=== PATIENT | female | born 2000 | race Caucasian/White ===

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

== ENCOUNTER 2018-10-16 23:08 | Emergency (ER) | payer OTHER, MEDICAID ==
[~2018-10-16] VITALS: Ht 167.6 cm; Wt 70.3 kg
[2018-10-17] MEDS ORDERED: AUGMENTIN 875 MG TAB (AMOXICILLIN/CLAVULANATE) PO STA (00:27)
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
[2018-10-17] MEDS ORDERED: AMOX-358 PO (00:56)
[2018-10-17 01:01] VITALS: BP 140/90
== END 2018-10-17 01:00 | disposition home or self-care (01) ==
LOC: EDUNIT# 23:08 → ER 23:11
DX: S71.152A Open bite, left thigh, initial encounter (principal); J45.909 Unspecified asthma, uncomplicated; R40.2142 Coma scale, eyes open, spontaneous, at arrival to emergency department; R40.2252 Coma scale, best verbal response, oriented, at arrival to emergency department; R40.2362 Coma scale, best motor response, obeys commands, at arrival to emergency department; Z87.440 Personal history of urinary (tract) infections; Z88.2 Allergy status to sulfonamides; Z88.1 Allergy status to other antibiotic agents; Y04.1XXA Assault by human bite, initial encounter
CPT/HCPCS: 99283

== ENCOUNTER 2020-07-22 07:57 | Emergency (ER) | payer BC, OTHER ==
[~2020-07-22] VITALS: Ht 165.1 cm; Wt 68.0 kg
[~2020-07-22 07:57] MED LIST changes: +AMOX-358 PO; -CLIN300C11 PO; +CLIN300C12 PO
[2020-07-22] MEDS ORDERED: ONDANSETRON 4 MG (ZOFRAN) ORAL DISSOLVE TAB PO ONE (08:15)
[2020-07-22] MEDS ORDERED: predniSONE 20 MG TAB PO ONE (08:15)
[2020-07-22] MEDS ORDERED: diphenhydrAMINE 25 MG TAB (BENADRYL) PO ONE (08:15)
[2020-07-22] MEDS ORDERED: FAMOTIDINE 20 MG (PEPCID) TABLET PO ONE (08:15)
--- NOTE | 2020-07-22 08:22 | ED General ---
General Stated Complaint: L ARM SPIDER BITE, BI LAT LEG POSSIBLE CELLULITIS Source of Information: Patient, Family Exam Limitations: No Limitations History of Present Illness Date Seen by Provider: July 22, 2020 Time Seen by Provider: 08:03 Initial Comments Patient is a 20-year-old female who presents to the emergency department today with a chief complaint of left upper extremity "bite" and bilateral inner thigh redness and swelling. Patient states that she noticed that she had some sort of an insect bite or spider bite to her left wrist on Wednesday, 3 days ago. Patient states that she went to [facility] and was started on some doxycycline. At the time she noticed the bites she had some mild redness to the upper medial thighs bilaterally. She states she was also given a shot of steroids. She states her symptoms worsen she went back to urgent care and then had some "steroid injections around the bite site". And then potentially another shot of antibiotics. She is on doxycycline twice daily now for 10 days. The redness to her upper inner thighs is worse. She also has diffuse macular rash to her back. She has mild erythema and swelling that extends up her left arm into the axilla. There is no induration or fluctuance around the bite site. There is a small pustule at the bite site with adjacent ecchymosis. She states she has felt malaise, nausea, has had decreased appetite and overall oral intake. She also complains of dysuria, urgency and frequency and states that she has "chronic UTIs". She is declining giving a urine sample at this time secondary to the pain that it causes when she urinates. All other review of systems reviewed and negative except as stated above. Timing/Duration: 3-4 Days Severity: Moderate Modifying Factors: worse with Movement; improves with Rest Associated Systoms: Loss of Appetite, Malaise, Nausea/Vomiting Allergies and Home Medications Allergies Coded Allergies: sulfamethoxazole (Verified Allergy, Unknown, 04/14/16) trimethoprim (Verified Allergy, Unknown, 04/14/16) Uncoded Allergies: [id number] (HAYFEVER) (Allergy, Mild, 10/04/08) Home Medications Amoxicillin/Potassium Clav 1 Each Tablet, 1 EACH PO BID Prescribed by: REBECCA VGIIL on 10/17/18 0056 Clindamycin HCl 300 Mg Capsule, 1 CAP PO UD, (Reported) Doxycycline Hyclate 100 Mg Tablet, 100 MG PO BID Prescribed by: SUSAN ARREGUIN on 04/13/162201 Prednisone 10 Mg Tab.ds.pk, 10 MG PO DAILY Take 6 tabs(60mg)daily,decrease by 1 tab(10mg)every other day. Prescribed by: TITI PAUL on 07/22/20 0829 Patient Home Medication List Home Medication List Reviewed: Yes Review of Systems Review of Systems Constitutional: see HPI, malaise EENTM: no symptoms reported Respiratory: no symptoms reported Cardiovascular: no symptoms reported Gastrointestinal: nausea Genitourinary: dysuria, frequency Musculoskeletal: muscle pain Skin: pruritus, rash Psychiatric/Neurological: No Symptoms Reported All Other Systems Reviewed Negative Unless Noted: Yes Past Dpszfqm-Aooifl-Gegqco Hx Patient Social History 2nd Hand Smoke Exposure: No Recent Hopitalizations: No Immunizations Up To Date Tetanus Booster (TDap): Less than 5yrs Date of Influenza Vaccine: Nov 22, 2013 Seasonal Allergies Seasonal Allergies: Yes Past Medical History Surgeries: No Respiratory: Yes Asthma Cardiac: No Neurological: No Reproductive Disorders: No UTI-Chronic Gastrointestinal: No Musculoskeletal: No Endocrine: No Cancer: No Psychosocial: No Integumentary: No Blood Disorders: No Physical Exam Vital Signs Vital Signs - First Documented 07/22/20 08:01 Temp 36.1 Pulse 88 Resp 18 B/P (MAP) 138/101 (113) Pulse Ox 99 O2 Delivery Room Air Capillary Refill : Height, Weight, BMI Height: 5'6" Weight: 155lbs. oz. 70.053091ha; 25.01 BMI Method:Estimated General Appearance: No Apparent Distress, WD/WN Eyes: Bilateral Eye Normal Inspection, Bilateral Eye PERRL, Bilateral Eye EOMI Neck: Normal Inspection Respiratory: Lungs Clear, Normal Breath Sounds, No Accessory Muscle Use, No Respiratory Distress Cardiovascular: Regular Rate, Rhythm Extremity: No Calf Tenderness, Swelling (Left forearm and upper arm) Neurologic/Psychiatric: Alert, Oriented x3, No Motor/Sensory Deficits, Normal Mood/Affect Skin: Normal Color, Warm/Dry, Other (Patient has bright red bilateral inner thigh macular rash as well as a nonpalpable macular rash to her back. She has some mild erythema to the left forearm with a "bite" that is pustular on the volar surface of the left forearm, this pustule is pinpoint. There is adjacent ecchymosis. The bite site is not fluctuant or indurated. The erythema extends up the medial forearm and into the axilla.) Progress/Results/Core Measures Suspected Sepsis SIRS Temperature: Pulse: Respiratory Rate: Laboratory Tests 07/22/20 08:27: White Blood Count 5.9 Blood Pressure / Mean: Laboratory Tests 07/22/20 08:27: Creatinine 0.62, Platelet Count 208 Results/Orders Lab Results Laboratory Tests Test 07/22/20 08:27 Range/Units White Blood Count 5.9 4.3-11.0 10^3/uL Red Blood Count 4.63 3.80-5.11 10^6/uL Hemoglobin 13.9 11.5-16.0 g/dL Hematocrit 42 35-52 % Mean Corpuscular Volume 90 80-99 fL Mean Corpuscular Hemoglobin 30 25-34 pg Mean Corpuscular Hemoglobin Concent 33 32-36 g/dL Red Cell Distribution Width 12.0 10.0-14.5 % Platelet Count 208 130-400 10^3/uL Mean Platelet Volume 11.6 9.0-12.2 fL Immature Granulocyte % (Auto) 0 % Neutrophils (%) (Auto) 58 42-75 % Lymphocytes (%) (Auto) 22 12-44 % Monocytes (%) (Auto) 15 H 0-12 % Eosinophils (%) (Auto) 4 0-10 % Basophils (%) (Auto) 0 0-10 % Neutrophils # (Auto) 3.4 1.8-7.8 10^3/uL Lymphocytes # (Auto) 1.3 1.0-4.0 10^3/uL Monocytes # (Auto) 0.9 0.0-1.0 10^3/uL Eosinophils # (Auto) 0.3 0.0-0.3 10^3/uL Basophils # (Auto) 0.0 0.0-0.1 10^3/uL Immature Granulocyte # (Auto) 0.0 0.0-0.1 10^3/uL Sodium Level 139 135-145 MMOL/L Potassium Level 3.4 L 3.6-5.0 MMOL/L Chloride Level 105 98-107 MMOL/L Carbon Dioxide Level 21 21-32 MMOL/L Anion Gap 13 5-14 MMOL/L Blood Urea Nitrogen 7 7-18 MG/DL Creatinine 0.62 0.60-1.30 MG/DL Estimat Glomerular Filtration Rate > 60 BUN/Creatinine Ratio 11 Glucose Level 94 70-105 MG/DL Calcium Level 9.2 8.5-10.1 MG/DL C-Reactive Protein High Sensitivity 0.48 0.00-0.50 MG/DL My Orders Orders - TITI PAUL MD Cbc With Automated Diff (07/22/20 08:14) Basic Metabolic Panel (07/22/20 08:14) Hs C Reactive Protein (07/22/20 08:14) Ondansetron Oral Dissolve Tab (Zofran (07/22/20 08:15) Prednisone Tablet (Deltasone Tablet) (07/22/20 08:15) Diphenhydramine Tablet (Benadryl Tablet) (07/22/20 08:15) Famotidine Tablet (Pepcid Tablet) (07/22/20 08:15) Medications Given in ED Current Medications Medications Dose Ordered Sig/Maureen Route Start Time Stop Time Status Last Admin Dose Admin Diphenhydramine HCl 50 mg ONCE ONCE PO 07/22/20 08:15 07/22/20 08:16 DC 07/22/20 08:23 50 MG Famotidine 20 mg ONCE ONCE PO 07/22/20 08:15 07/22/20 08:16 DC 07/22/20 08:22 20 MG Ondansetron HCl 4 mg ONCE ONCE PO 07/22/20 08:15 07/22/20 08:16 DC 07/22/20 08:23 4 MG Prednisone 50 mg ONCE ONCE PO 07/22/20 08:15 07/22/20 08:16 DC 07/22/20 08:22 50 MG Vital Signs/I&O 07/22/20 08:01 Temp 36.1 Pulse 88 Resp 18 B/P (MAP) 138/101 (113) Pulse Ox 99 O2 Delivery Room Air Capillary Refill : Departure Impression Primary Impression: Medication adverse effect Qualified Codes: T50.905A - Adverse effect of unspecified drugs, medicaments and biological substances, initial encounter Additional Impression: Insect bite Qualified Codes: S50.862A - Insect bite (nonvenomous) of left forearm, initial encounter; W57.XXXA - Bitten or stung by nonvenomous insect and other nonvenomous arthropods, initial encounter Disposition: HOME, SELF-CARE Condition: Stable Departure-Patient Inst. Decision time for Depature: 09:13 Referrals: NO,LOCAL PHYSICIAN (PCP) Primary Care Physician CHEYENNE HERRERA DO (Family) Primary Care Physician Patient Instructions: Insect Bites and Stings Add. Discharge Instructions: Take the antibiotics as prescribed 3 times a day for the next week. Take the prednisone as instructed, taper over multiple days from 60 mg down to 10. Follow-up with [facility] or return to the emergency room for any new, concerning or worsening symptoms. Use cool packs to the left wrist at the area of the bite. Scripts Prednisone (Prednisone) 10 Mg Tab.ds.pk 10 MG PO DAILY, #42 EA Take 6 tabs(60mg)daily,decrease by 1 tab(10mg)every other day. Prov: TITI PAUL MD 07/22/20 Cephalexin (Cephalexin) 500 Mg Tablet 500 MG PO TID, #21 TAB Prov: TITI PAUL MD 07/22/20 Ondansetron (Ondansetron Odt) 4 Mg Tab.rapdis 4 MG PO Q8H for nausea, #10 TAB Prov: TITI PAUL MD 07/22/20 TITI PAUL MD July 22, 2020 08:22
[2020-07-22] MEDS ORDERED: PRED10TA22 PO ×2 (08:29→09:17)
[2020-07-22 08:33] LABS: BASOPHILS % (AUTO) 0 % (0-10); EOSINOPHILS # (AUTO) 0.3 10^3/uL (0.0-0.3); EOSINOPHILS % (AUTO) 4 % (0-10); HEMATOCRIT 42 % (35-52); HEMOGLOBIN 13.9 g/dL (11.5-16.0); LYMPHOCYTES # (AUTO) 1.3 10^3/uL (1.0-4.0); LYMPHOCYTES % (AUTO) 22 % (12-44); MEAN CORPUSCULAR HEMOGLOBIN 30 pg (25-34); MEAN CORPUSCULAR HGB CONC 33 g/dL (32-36); MEAN CORPUSCULAR VOLUME 90 fL (80-99); MEAN PLATELET VOLUME 11.6 fL (9.0-12.2); MONOCYTES # (AUTO) 0.9 10^3/uL (0.0-1.0); MONOCYTES % (AUTO) 15 % (0-12); NEUTROPHILS # (AUTO) 3.4 10^3/uL (1.8-7.8); NEUTROPHILS % (AUTO) 58 % (42-75); PLATELET COUNT 208 10^3/uL (130-400); WHITE BLOOD COUNT 5.9 10^3/uL (4.3-11.0)
[2020-07-22 08:44] LABS: CHLORIDE 105 MMOL/L (98-107); POTASSIUM 3.4 MMOL/L (3.6-5.0); SODIUM 139 MMOL/L (135-145)
[2020-07-22 08:45] LABS: CALCIUM 9.2 MG/DL (8.5-10.1)
[2020-07-22 08:46] LABS: GLUCOSE 94 MG/DL (70-105)
[2020-07-22 08:47] LABS: CARBON DIOXIDE 21 MMOL/L (21-32)
[2020-07-22 08:50] LABS: BUN/CREATININE RATIO 11; CREATININE SERUM 0.62 MG/DL (0.60-1.30); GFR ESTIMATED > 60
[2020-07-22] MEDS ORDERED: CEPH500T PO (09:16)
[2020-07-22] MEDS ORDERED: ONDA4TAB11 PO (09:16)
[2020-07-22 09:24] VITALS: BP 128/92
== END 2020-07-22 09:08 | disposition home or self-care (01) ==
LOC: EDUNIT# 07:57 → ER 07:59
DX: S50.862A Insect bite (nonvenomous) of left forearm, initial encounter (principal); L27.0 Generalized skin eruption due to drugs and medicaments taken internally; T36.4X5A Adverse effect of tetracyclines, initial encounter; J45.909 Unspecified asthma, uncomplicated; W57.XXXA Bitten or stung by nonvenomous insect and other nonvenomous arthropods, initial encounter
CPT/HCPCS: 36415; 80048; 85025; 86141; 99283

== ENCOUNTER → 2022-12-07 | Outpatient (CLI) | payer BC ==
[~2022-12-07] MED LIST changes: +CEPH500T PO; +CLIN-144 PO; -CLIN300C12 PO; +ONDA4TAB11 PO; +PRED10TA22 PO
--- NOTE | 2022-12-07 17:23 | Diagnostic Imaging Report ---
INDICATION: patient, survey. TECHNIQUE: Multiple real-time grayscale images were obtained over the gravid uterus. COMPARISON: None FINDINGS: A single live intrauterine fetus is seen measuring 20 weeks 1 day by composite measurements. Diffuse and cephalic presentation. Placenta is anterior with no evidence of previa. Amniotic fluid index is 12.9 cm. Gestational sac had a normal-appearing shape. heart rate is 144 bpm. Distance from the internal os to the tip of the placenta was 3.6 cm, the cervical length is 4.1 cm. Maternal adnexa were not well seen due to age. survey showed normal-appearing kidneys and bladder. Normal-appearing stomach was seen. Intracranial ventricles appear normal. Four-chamber heart view appeared normal. Three-vessel cord and cord insertion appeared normal. Views of the spine were unremarkable. Biometrical measurements are as follows: Biparietal 4.58 cm, age 19 weeks 6 days. Head circumference 17.25 cm, age 19 weeks 6 days. Abdominal circumference 14.89 cm, age 20 weeks 2 days. Femur length 3.24 cm, age 20 weeks 1 days. Sonographic estimate age: 20 weeks 1 days. Sonographic estimated date of delivery: 04/25/2023. Estimated Weight: 332 gm (+/- 49 gm). LMP percentile: 34%. heart rate: 144 beats per minute. number: 1 of 1. IMPRESSION: Single live intrauterine fetus measuring 20 weeks 1 day in size. There was no detectable abnormality. Dictated by: Dictated on workstation # [id number]
== END ==
LOC: RAD 13:41
PROVIDERS: ATTEND Obstetrics & Gynecology
DX: Z36.89 Encounter for other specified antenatal screening (principal); Z3A.20 20 weeks gestation of pregnancy
CPT/HCPCS: 76805